=== PATIENT | male | born 1960 | race Caucasian/White ===

== ENCOUNTER 2017-10-31 10:48 | Day surgery (SDC) | payer BC ==
[~2017-10-31] VITALS: Ht 177.8 cm; Wt 79.4 kg
[2017-10-31 11:06] VITALS: BP 121/74; PULSE 80; TEMP 97.2
[2017-10-31 15:40] VITALS: BP 140/85; PULSE 92; TEMP 97.5
[2017-10-31 15:55] VITALS: BP 128/80; PULSE 83
[2017-10-31 16:10] VITALS: BP 127/83; PULSE 80
[2017-10-31 16:25] VITALS: BP 123/75; PULSE 82
[2017-10-31 16:55] VITALS: BP 127/72; PULSE 87
== END 2017-10-31 17:05 | disposition home or self-care (01) ==
LOC: SDCO 10:48
DX: K40.20 Bilateral inguinal hernia, without obstruction or gangrene, not specified as recurrent (principal); K92.1 Melena; D17.6 Benign lipomatous neoplasm of spermatic cord
CPT/HCPCS: A4314; C1781; J0690; J1100; J1885; J2405; J2704; J3010; J7120